=== PATIENT | female | born 1990 | race Caucasian/White ===

== ENCOUNTER 2022-02-07 04:01 | Observation (INO) ==
[2022-02-07 05:06] LABS: Basophils # 0.1 K/mcL (0.0-0.2); Basophils % 0.5 %; Eosinophils % 0.1 %; Hemoglobin 14.2 g/dL (11.5-15.4); Immature Granulocytes % 0.3 % (0-4); Lymphocytes # 1.3 K/mcL (0.6-4.6); Mean Corpuscular HGB Conc 33.8 g/dL (31.6-35.5); Mean Corpuscular Hemoglobin 31.2 pg (28.0-33.3); Mean Corpuscular Volume 92.3 fL (83.0-100.0); Mean Platelet Volume 9.1 fL (9.4-12.4); Monocytes # 0.4 K/mcL (0.0-1.3); Monocytes % 3.4 %; Neutrophils # 10.3 K/mcL (1.6-8.9); Platelet Count 263 K/mcL (140-400); Red Blood Count 4.55 M/mcL (3.82-4.97); Red Cell Distribution Width 11.4 % (11.5-14.5); Segmented Neutrophils % 84.7 %; White Blood Count 12.2 K/mcL (4.3-11.1)
[2022-02-07] MEDS ORDERED: 0.9 % Sodium Chloride 1,000 ML IVC ONE ×2 (05:17)
[2022-02-07] MEDS ORDERED: cefTRIAXone 1,000 MG in 0.9 % Sodium Chloride Mini Bag 100 ML IVPB ONE (05:18)
[2022-02-07] MEDS ORDERED: Azithromycin 500 MG in 0.9 % Sodium Chloride 250 ML IVPB ONE (05:19)
[2022-02-07 05:20] LABS: Acetaminophen < 10 mcg/mL (10-20); Alanine Aminotransferase 15 Units/L (7-52); Albumin 4.6 g/dL (3.5-5.7); Albumin/Globulin Ratio 1.6 (1.1-2.2); Alkaline Phosphatase 53 Units/L (34-104); Aspartate Amino Transferase 18 Units/L (13-39); BUN/Creatinine Ratio 15 (6-26); Bilirubin,Direct 0.1 mg/dL (0.0-0.2); Bilirubin,Indirect 0.5 mg/dL (0.0-1.0); Bilirubin,Total 0.6 mg/dL (0.3-1.0); Blood Urea Nitrogen 11 mg/dL (6-20); Calcium 9.2 mg/dL (8.6-10.3); Carbon Dioxide 20 mEq/L (23-29); Chloride 103 mEq/L (98-107); Creatine Kinase 183 Units/L (30-223); Globulin 2.9 g/dL (2.4-3.5); Glucose 156 mg/dL (70-105); Osmolality,Calculated 283 (280-300); Potassium 3.4 mEq/L (3.5-5.1); Salicylate < 2.5 mg/dL (15.0-30.0); Sodium 135 mEq/L (136-145); Total Protein 7.5 g/dL (6.4-8.9); Troponin I < 0.03 ng/mL (< 0.04)
[2022-02-07] MEDS ORDERED: Iopamidol - 370 500 ML MLS IVP ONE (05:22)
[2022-02-07 06:02] LABS: Amphetamine Screen,Urine Negative ng/mL (Cutoff=1000); Barbiturate Screen,Urine Negative ng/mL (Cutoff=200); Benzodiazepines Screen,Urine Negative ng/mL (Cutoff=200); Cannabinoid Screen,Urine Positive ng/mL (Cutoff = 50); Cocaine Screen,Urine Negative ng/mL (Cutoff= 300); Opiate Screen,Urine Negative ng/mL (Cutoff=300); Phencyclidine Screen,Urine Negative ng/mL (Cutoff=25)
[2022-02-07 06:08] LABS: VBG HCO3 21 mEq/L (21-27); VBG PCO2 33 mmHg (41-51); VBG PH 7.41 pH Units (7.32-7.42); VBG PO2 67 mmHg (25-50)
[2022-02-07 06:12] LABS: Activated Partial Thrombo Time 31.6 Seconds (26.0-36.0); INR 1.1; Prothrombin Time 11.9 Seconds (9.4-12.1)
[2022-02-07 06:14] LABS: Bilirubin,Urine Negative (Negative); Blood,Urine Trace (Negative); Clarity,Urine Clear (Clear); Color,Urine Light-Yellow (Yellow); Glucose,Urine (UA) 500 mg/dL (Normal); Ketones,Urine 10 mg/dL (Negative); Leukocyte Esterase,Urine Small (Negative); Mucus,Urine Few per lpf (None-Few); Nitrite,Urine Negative (Negative); PH,Urine 5.5 pH Units (5.0-8.0); Protein,Urine 50 mg/dL (Neg-Trace); RBC,Urine 0-3 per hpf (0-3); Specific Gravity,Urine > 1.030 (1.010-1.025); Squamous Epithelial Cell,Urine Moderate per hpf (None-Few); Urobilinogen,Urine Normal (Normal)
[2022-02-07] MEDS ORDERED: Ondansetron 4 MG/2 ML VIAL IVP PRN (07:57)
[2022-02-07] MEDS ORDERED: Acetaminophen 325 MG TABLET PO PRN (07:57)
[2022-02-07] MEDS ORDERED: Naloxone 0.4 MG/ML INJ IVP PRN (07:57)
[2022-02-07] MEDS: 0.9 % Sodium Chloride 1,000 ML IVC SCH ×2 (09:11→18:32)
[2022-02-07] MEDS: Piperacillin/Tazobactam 3.375 GM in 0.9 % Sodium Chloride Mini Bag 100 ML IVPB SCH ×2 (09:14→18:32)
[2022-02-07 09:30] LABS: Influenza A PCR Negative (Negative); Influenza B PCR Negative (Negative); Resp. Syncytial Virus PCR Negative (Negative); SARS-CoV-2 by PCR (In House) Negative (Negative)
[2022-02-07] MEDS: Nicotine 21 MG PATCH.TD24 TD SCH (14:38)
[2022-02-08] MEDS: Piperacillin/Tazobactam 3.375 GM in 0.9 % Sodium Chloride Mini Bag 100 ML IVPB SCH ×2 (00:07→09:33)
[2022-02-08] MEDS ORDERED: Melatonin 3 MG TABLET PO ONE (01:05)
[2022-02-08] MEDS: 0.9 % Sodium Chloride 1,000 ML IVC SCH (03:39)
[2022-02-08 06:20] LABS: Basophils % 0.6 %; Eosinophils # 0.2 K/mcL (0.0-0.6); Eosinophils % 3.5 %; Hematocrit 36.6 % (35.3-44.9); Immature Granulocytes % 0.1 % (0-4); Lymphocytes # 2.2 K/mcL (0.6-4.6); Lymphocytes % 32.7 %; Mean Corpuscular HGB Conc 33.3 g/dL (31.6-35.5); Mean Corpuscular Hemoglobin 31.4 pg (28.0-33.3); Mean Corpuscular Volume 94.1 fL (83.0-100.0); Monocytes # 0.6 K/mcL (0.0-1.3); Monocytes % 9.4 %; Neutrophils # 3.7 K/mcL (1.6-8.9); Platelet Count 237 K/mcL (140-400); Red Blood Count 3.89 M/mcL (3.82-4.97); Red Cell Distribution Width 11.8 % (11.5-14.5); Segmented Neutrophils % 53.7 %; White Blood Count 6.8 K/mcL (4.3-11.1)
[2022-02-08 06:21] LABS: Hemoglobin 12.2 g/dL (11.5-15.4)
[2022-02-08 06:39] LABS: BUN/Creatinine Ratio 10 (6-26); Blood Urea Nitrogen 7 mg/dL (6-20); Calcium 8.7 mg/dL (8.6-10.3); Carbon Dioxide 21 mEq/L (23-29); Chloride 111 mEq/L (98-107); Glucose 98 mg/dL (70-105); Osmolality,Calculated 286 (280-300); Potassium 3.4 mEq/L (3.5-5.1); Sodium 139 mEq/L (136-145)
[2022-02-08] MEDS ORDERED: *HR* Enoxaparin 40 MG/0.4 ML SYRINGE SQ SCH (07:00)
[2022-02-08 08:21] VITALS: O2SAT 100
[2022-02-08] MEDS ORDERED: cloNIDine HCL 0.1 MG TABLET PO SCH (09:00)
[2022-02-08] MEDS: Nicotine 21 MG PATCH.TD24 TD SCH (09:34)
[2022-02-08 11:56] VITALS: BP 109/71; PULSE 56; TEMP 98.4
[2022-02-09] MEDS ORDERED: Gabapentin 300 MG CAPSULE PO SCH (09:00)
[2022-02-09] MEDS ORDERED: tiZANidine 4 MG TABLET PO PRN (09:00)
== END 2022-02-08 12:10 | disposition home or self-care (01) ==
LOC: 3ANU 04:01 → EMEROOARM 04:01 → SUATTDRO 17:24 → 3ANU 18:41
PROVIDERS: ADMIT Pharmacist; ATTEND Internal Medicine